=== PATIENT | female | born 1990 | race Caucasian/White ===

== ENCOUNTER 2020-02-11 11:02 | Outpatient (REF) | payer OTHER, SELFPAY ==
[2020-02-11 12:05] LABS: Cholesterol 194 mg/dL; HDL Cholesterol 48 mg/dL; LDL Cholesterol Calculated 114 mg/dl; Triglycerides 161 mg/dL
[2020-02-18 12:57] LABS: Apolipoprotein B 97 mg/dL (<90)
[2020-02-21 06:33] LABS: Lipoprotein A 42 nmol/L (<75)
== END 2020-02-11 11:03 | disposition home or self-care (01) ==
LOC: HO.LAB 11:02
PROVIDERS: PCP Internal Medicine; Visit Provider Internal Medicine
DX: E78.00 Pure hypercholesterolemia, unspecified (principal)
CPT/HCPCS: 80061; 82172; 83695

== ENCOUNTER 2020-04-28 15:11 | Outpatient (REF) | payer OTHER, SELFPAY ==
--- NOTE | 2020-04-28 16:30 | MHC.AU.HAA ---
Hearing Aid Evaluation- Binaural Date of Visit: 04/28/20 Description of Hearing: A recent hearing test from 04/08/2020 at [facility] indicates a mild to moderately severe sensorineural hearing loss bilaterally Additional Information: Ms. Rosenberg was first diagnosed with hearing loss in infancy. Ms. Rosenberg has previously used hearing aids, with her most recent pair from 2012. She notes that she does not typically wear the hearing aids as she hasn't liked the past ones she's had, but she has been having more difficulties with communication with mask use and is interested in trying an updated pair of hearing aids. Hearing Instrument Selection: Right Ear: Interpreter Deaf: [employer] Model: Audeo P70-R Battery Size: Rechargeable Color: P1 Sand beige Life Scientist: Size 0 M Left Ear: Interpreter Deaf: Phonak Model: Audeo P70-R Battery Size: Rechargeable Color: P1 Sand beige Life Scientist: Size 0 M Plan: Action Taken/Action Needed: Hearing Fitting to be scheduled when materials arrive Diagnosis Code(s): Primary Diagnosis: H90.3 Bilateral Sensorineural Hearing Loss Signature: Provider: Olga Madden, CCC-A
== END 2020-04-28 15:12 | disposition home or self-care (01) ==
LOC: HO.HAP 15:11
PROVIDERS: PCP Internal Medicine; Visit Provider Otolaryngology
DX: Z46.1 Encounter for fitting and adjustment of hearing aid (principal); H90.3 Sensorineural hearing loss, bilateral
CPT/HCPCS: 92591

== ENCOUNTER 2020-05-13 15:35 | Outpatient (REF) | payer OTHER, SELFPAY | END 2020-05-13 15:36 | disposition home or self-care (01) | LOC: HO.HAP 15:35 | PROVIDERS: Visit Provider Otolaryngology | DX: Z46.1 Encounter for fitting and adjustment of hearing aid (principal); H90.3 Sensorineural hearing loss, bilateral | CPT/HCPCS: V5011; V5020; V5160; V5261 ==

== ENCOUNTER 2020-11-04 14:05 | Outpatient (REF) | payer OTHER, SELFPAY ==
--- NOTE | 2020-11-04 14:37 | MHC.AU.HFU ---
Hearing Instrument Follow-Up- Binaural Date of Visit: 11/04/20 Right Ear: Critical Care Transport Nurse: Phonak Model: Audeo P70-R Serial Number: [id number] Repair Warranty: 07/29/2023 Battery Size: Rechargeable Color: P1 Sand beige Detacker: Size 0 M Type of Dome: Small open Type of Wax Guard: Cerushield Dispensed By: [facility] Date of Fittin05/13/2020 Left Ear: Critical Care Transport Nurse: Phonak Model: Audeo P70-R Serial Number: [id number] Repair Warranty: 07/29/2023 Battery Size: Rechargeable Color: P1 Sand beige Detacker: Size 0 M Type of Dome: Small open Type of Wax Guard: Cerushield Dispensed By: [facility] Date of Fittin05/13/2020 Follow-Up Summary: Hearing Aid Problem - Patient reports the hearing aids are not charging or only partially charging in her process project engineer. She reports she has tried different ways of placing aids in process project engineer, used different cords, etc with no help. Listening check showed both aids not working and unable to manually turn aids on. Placed aids on patient's process project engineer, needing to hold them down until the red light started to blink. Patient reports when she first received the aids she had no issues charging them, but over time she has had more problems. Ordered N/C process project engineer replacement order # [id number] Recommendations (Other): Call patient when new process project engineer in. Just needs to pick process project engineer up. Diagnosis Code(s): Primary Diagnosis: H90.3 Bilateral Sensorineural Hearing Loss Signature: Provider: Zak Crain, [facility]
== END 2020-11-04 14:06 | disposition home or self-care (01) ==
LOC: HO.HAP 14:05
PROVIDERS: Visit Provider Internal Medicine
DX: Z13.89 Encounter for screening for other disorder (principal)

== ENCOUNTER 2020-11-18 12:59 | Outpatient (REF) | payer SELFPAY | END 2020-11-18 13:00 | disposition home or self-care (01) | LOC: HO.HAP 12:59 | PROVIDERS: Visit Provider Internal Medicine | DX: Z13.89 Encounter for screening for other disorder (principal) ==